=== PATIENT | male | born 2000 | race Caucasian/White ===

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

== ENCOUNTER 2021-02-24 21:36 | Emergency (ER) | payer MEDICAID ==
[~2021-02-24] VITALS: Ht 197 cm; Wt 100.0 kg
[~2021-02-24 21:36] MED LIST changes: -ARIP10TA17; +ARIP10TA55; +ESCI-2; +SERT-414 PO; -SERT100T8 PO; -SULF1TAB35 PO; +SULF1TAB38 PO; -TRAZ-222; +TRZ50T
[2021-02-24] MEDS ORDERED: LACTATED RINGERS 1,000 ML IV ONE (21:45)
--- NOTE | 2021-02-24 21:58 | ED Chest Pain ---
General Chief Complaint: Chest Pain Stated Complaint: CHEST PAIN Source: patient, EMS Exam Limitations: no limitations History of Present Illness Date Seen by Provider: Feb 24, 2021 Time Seen by Provider: 21:42 Initial Comments Patient to the ER by EMS from [facility] with chief complaint of some right-sided chest pain worse with deep inspiration or direct palpation. He has no personal history of heart disease, blood clots. About 11 days ago he was diagnosed with COVID-19. He says the symptoms were milder than a cold and 3 days ago he had a negative Covid swab. He did have [employer]vin [employer] Ervin vaccination. He has no history of lung disease but he did overdose on Tylenol in the past and was told he can never take Tylenol again because he took 20,000 mg and had some liver damage. He does occasionally smoke a cigarette or cannabis. Here barrera he did use methamphetamines 2 days ago. His chest pain started on Monday, 2 days ago. No known familial medical history as he was placed in the foster system when he was 6 years old. Patient is having no hemoptysis. He has not taken any ibuprofen because he does not have any available. No trauma. He describes the pain as mild and dull with stabbing sharp operating theatre technician knifelike pain whenever he takes a deep breath or moves occasionally. The patient took some Tums with no relief of symptoms. Allergies and Home Medications Allergies Coded Allergies: No Known Drug Allergies (Unverified , 06/27/16) Patient Home Medication List Home Medication List Reviewed: Yes Escitalopram Oxalate (Escitalopram Oxalate) 10 Mg Tablet, (Reported) Entered as Reported by: NIGEL ELLIOTT on 08/09/18 4704 Review of Systems Review of Systems Constitutional: No chills, No diaphoresis EENTM: No Blurred Vision, No Double Vision Respiratory: Denies Cough, Denies Shortness of Air Cardiovascular: See HPI, Chest Pain Gastrointestinal: Denies Abdominal Pain, Denies Constipated, Denies Diarrhea, Denies Nausea, Denies Poor Appetite Genitourinary: Denies Burning, Denies Discharge Musculoskeletal: No back pain, No joint pain All Other Systems Reviewed Negative Unless Noted: Yes Past Izjrwip-Piaaxp-Vodkfa Hx Patient Social History Tobacco Use?: Yes Tobacco type used: Cigarettes Smoking Status: Current Everyday Smoker Substance use?: Yes Substance type: Methamphetamine, Marijuana Immunizations Up To Date Tetanus Booster (TDap): Less than 5yrs PED Vaccines UTD: Yes Seasonal Allergies Seasonal Allergies: No Past Medical History Surgeries: No Respiratory: No Cardiac: No Neurological: No Reproductive Disorders: No Genitourinary: No Gastrointestinal: No Musculoskeletal: No Endocrine: No HEENT: No Cancer: No Psychosocial: Yes (mood disorder) Suicide Attempts, Depression Integumentary: No Blood Disorders: No Adverse Reaction/Blood Tranf: No Family Medical History No Pertinent Family Hx Physical Exam Vital Signs Capillary Refill : Height, Weight, BMI Height: 6'7.00" Weight: 165lbs. oz. 74.783138xu; 14.06 BMI Method:Stated General Appearance: Anxious, Mild Distress HEENT: PERRL/EOMI, TMs Normal, Normal ENT Inspection, Pharynx Normal, Moist Mucous Membranes Neck: Full Range of Motion, Normal Inspection Respiratory: Lungs Clear, Normal Breath Sounds, No Accessory Muscle Use, Other (Patient mildly tachypneic 25 to 30 breaths/min but shallow. Deep inspirations causes severe sharp pain in his right chest. It is also reproducible by direct palpation of his right chest. There is no deformity discoloration of the anterior chest wall. No crepitus palpable.) Cardiovascular: Regular Rate, Rhythm, Normal Peripheral Pulses Gastrointestinal: Normal Bowel Sounds, No Organomegaly, Non Tender, Soft Extremity: Normal Capillary Refill, Normal Inspection, Normal Range of Motion, No Calf Tenderness, No Pedal Edema Neurologic/Psychiatric: Alert, Oriented x3 Skin: Normal Color, Warm/Dry Progress/Results/Core Measures Results/Orders Lab Results Laboratory Tests Test 02/24/21 21:45 Range/Units White Blood Count 7.5 4.3-11.0 10^3/uL Red Blood Count 5.23 4.30-5.52 10^6/uL Hemoglobin 16.3 13.3-17.7 g/dL Hematocrit 46 40-54 % Mean Corpuscular Volume 87 80-99 fL Mean Corpuscular Hemoglobin 31 25-34 pg Mean Corpuscular Hemoglobin Concent 36 32-36 g/dL Red Cell Distribution Width 12.2 10.0-14.5 % Platelet Count 298 130-400 10^3/uL Mean Platelet Volume 9.7 9.0-12.2 fL Immature Granulocyte % (Auto) 0 % Neutrophils (%) (Auto) 57 42-75 % Lymphocytes (%) (Auto) 32 12-44 % Monocytes (%) (Auto) 9 0-12 % Eosinophils (%) (Auto) 1 0-10 % Basophils (%) (Auto) 1 0-10 % Neutrophils # (Auto) 4.3 1.8-7.8 10^3/uL Lymphocytes # (Auto) 2.4 1.0-4.0 10^3/uL Monocytes # (Auto) 0.7 0.0-1.0 10^3/uL Eosinophils # (Auto) 0.1 0.0-0.3 10^3/uL Basophils # (Auto) 0.1 0.0-0.1 10^3/uL Immature Granulocyte # (Auto) 0.0 0.0-0.1 10^3/uL D-Dimer <= 0.27 0.00-0.49 UG/ML Sodium Level 140 135-145 MMOL/L Potassium Level 3.1 L 3.6-5.0 MMOL/L Chloride Level 106 98-107 MMOL/L Carbon Dioxide Level 18 L 21-32 MMOL/L Anion Gap 16 H 5-14 MMOL/L Blood Urea Nitrogen 12 7-18 MG/DL Creatinine 1.08 0.60-1.30 MG/DL Estimat Glomerular Filtration Rate 87 BUN/Creatinine Ratio 11 Glucose Level 84 70-105 MG/DL Calcium Level 10.1 8.5-10.1 MG/DL Corrected Calcium 8.5-10.1 MG/DL Total Bilirubin 0.6 0.1-1.0 MG/DL Aspartate Amino Transf (AST/SGOT) 17 5-34 U/L Alanine Aminotransferase (ALT/SGPT) 10 0-55 U/L Alkaline Phosphatase 72 40-136 U/L Total Creatine Kinase 71 30-200 U/L Troponin I < 0.028 <0.028 NG/ML Total Protein 7.9 6.4-8.2 GM/DL Albumin 4.6 H 3.2-4.5 GM/DL My Orders Orders - RAPHAELHELENA J Chest 1 View, Ap/Pa Only (02/24/21 21:44) Cbc With Automated Diff (02/24/21 21:44) Comprehensive Metabolic Panel (02/24/21 21:44) Troponin I Tommy (02/24/21 21:44) Creatine Kinase (02/24/21 21:44) Ed Iv/Invasive Line Start (02/24/21 21:44) Lactated Ringers (Lr 1000 Ml Iv Solution (02/24/21 21:45) Continuous Ekg Monitoring (02/24/21 21:45) Ekg Tracing (02/24/21 21:45) Ketorolac Injection (Toradol Injection) (02/24/21 22:00) Fibrin Degradation Products (02/24/21 21:53) Medications Given in ED Current Medications Medications Dose Ordered Sig/Tacho Route Start Time Stop Time Status Last Admin Dose Admin Ketorolac Tromethamine 30 mg ONCE ONCE IVP 02/24/21 22:00 02/24/21 22:01 DC 02/24/21 22:05 30 MG Lactated Ringer's 1,000 ml @ 0 mls/hr Q0M ONCE IV 02/24/21 21:45 02/24/21 21:46 DC 02/24/21 22:05 0 MLS/HR Progress Progress Note : Time: 21:57 Progress Note No tachycardia or evidence of DVT however because of his recent Covid infection he would be reasonable to get a D-dimer for intermediate suspicion of pulmonary embolism. Costochondritis and pleurisy seems more likely. We will get a troponin and EKG to rule out myocarditis which is commonly associated with viral infections. Toradol for his pain. Initial ECG Impression Date: Feb 24, 2021 Initial ECG Impression Time: 21:38 Initial ECG Rate: 70 Initial ECG Rhythm: Normal Sinus Initial ECG Intervals: Normal Initial ECG Impression: Normal Comment Normal sinus rhythm without clinically relevant ST changes. Diagnostic Imaging Diagonstic Imaging: Xray Plain Films/CT/US/NM/MRI: chest Comments [facility], [facility]. [place], [place] NAME: GIRMA JORDAN [facility] REC#: [id number] PT STATUS: REG ER : 2000 PHYSICIAN: HELENA LIM MD ADMIT DATE: 02/24/21/ER Signed Date of Exam:02/24/21 CHEST 1 VIEW, AP/PA ONLY CLINICAL INDICATION: Patient with chest pain. EXAM: Portable chest x-ray upright view. COMPARISON: None. FINDINGS: Lungs/pleura: Lungs are clear. There is no pneumothorax. There is no pleural effusion. Mediastinum: Unremarkable. Pulmonary vasculature: Unremarkable. Heart: Unremarkable. Bones/extrathoracic soft tissue: Unremarkable. IMPRESSION: There is no radiographic evidence of acute cardiopulmonary process. Dictated by: Dictated on workstation # [id number] Dict: 02/24/212328 Trans: 02/24/212337 DANIELLE [id number] Interpreted by: VIV WEBB MD Electronically signed by: VIV WEBB MD 02/24/218 Reviewed: Reviewed by Me Departure Impression Primary Impression: Pleurisy Additional Impression: Acute costochondritis Disposition: HOME, SELF-CARE Condition: Stable Departure-Patient Inst. Decision time for Depature: 23:47 Referrals: [facility] (PCP/Family) Primary Care Physician Patient Instructions: Pleuritic Chest Pain, Costochondritis Add. Discharge Instructions: Your chest wall pain usually will resolve in 1 to 2 weeks. Prednisone 2 tablets daily for the next 5 days to help reduce inflammation and p ain. Naproxen 500 mg twice a day as necessary for pain in your chest wall. Humidifiers and vapor rubs such as Vicks or Mentholatum may be helpful for pain. All discharge instructions reviewed with patient and/or family. Voiced understanding. Scripts Naproxen (Naprosyn) 500 Mg Tablet 500 MG PO BID for 14 Days, #30 TAB 0 Refills Prov: HELENA LIM 02/24/21 Prednisone (Prednisone) 20 Mg Tab 40 MG PO DAILY for 5 Days, #10 TAB 0 Refills Prov: HELENA LIM 02/24/21 Work/School Note: Work Release Form Date Seen in the Emergency Department: Feb 24, 2021 Return to Work: Feb 25, 2021 Restrictions: Need Release from Doctor HELENA LIM Feb 24, 2021 21:58
[2021-02-24 21:59] LABS: BASOPHILS # (AUTO) 0.1 10^3/uL (0.0-0.1); BASOPHILS % (AUTO) 1 % (0-10); EOSINOPHILS # (AUTO) 0.1 10^3/uL (0.0-0.3); EOSINOPHILS % (AUTO) 1 % (0-10); HEMATOCRIT 46 % (40-54); HEMOGLOBIN 16.3 g/dL (13.3-17.7); LYMPHOCYTES # (AUTO) 2.4 10^3/uL (1.0-4.0); LYMPHOCYTES % (AUTO) 32 % (12-44); MEAN CORPUSCULAR HEMOGLOBIN 31 pg (25-34); MEAN CORPUSCULAR HGB CONC 36 g/dL (32-36); MEAN CORPUSCULAR VOLUME 87 fL (80-99); MEAN PLATELET VOLUME 9.7 fL (9.0-12.2); MONOCYTES # (AUTO) 0.7 10^3/uL (0.0-1.0); MONOCYTES % (AUTO) 9 % (0-12); NEUTROPHILS # (AUTO) 4.3 10^3/uL (1.8-7.8); NEUTROPHILS % (AUTO) 57 % (42-75); PLATELET COUNT 298 10^3/uL (130-400); WHITE BLOOD COUNT 7.5 10^3/uL (4.3-11.0)
[2021-02-24] MEDS ORDERED: KETOROLAC 30 MG/ML VIAL IVP ONE (22:00)
[2021-02-24 22:10] LABS: ALBUMIN 4.6 GM/DL (3.2-4.5); CHLORIDE 106 MMOL/L (98-107); POTASSIUM 3.1 MMOL/L (3.6-5.0); SODIUM 140 MMOL/L (135-145)
[2021-02-24 22:11] LABS: CALCIUM 10.1 MG/DL (8.5-10.1)
[2021-02-24 22:12] LABS: GLUCOSE 84 MG/DL (70-105); TOTAL PROTEIN 7.9 GM/DL (6.4-8.2)
[2021-02-24 22:13] LABS: CARBON DIOXIDE 18 MMOL/L (21-32)
[2021-02-24 22:14] LABS: BILIRUBIN,TOTAL 0.6 MG/DL (0.1-1.0)
[2021-02-24 22:15] LABS: ALKALINE PHOSPHATASE 72 U/L (40-136)
[2021-02-24 22:16] LABS: CREATININE SERUM 1.08 MG/DL (0.60-1.30); GFR ESTIMATED 87
[2021-02-24 22:17] LABS: BUN/CREATININE RATIO 11
[2021-02-24 22:19] LABS: ALANINE AMINOTRANSFERASE 10 U/L (0-55); CREATINE KINASE 71 U/L (30-200)
--- NOTE | 2021-02-24 23:32 | Diagnostic Imaging Report ---
CLINICAL INDICATION: Patient with chest pain. EXAM: Portable chest x-ray upright view. COMPARISON: None. FINDINGS: Lungs/pleura: Lungs are clear. There is no pneumothorax. There is no pleural effusion. Mediastinum: Unremarkable. Pulmonary vasculature: Unremarkable. Heart: Unremarkable. Bones/extrathoracic soft tissue: Unremarkable. IMPRESSION: There is no radiographic evidence of acute cardiopulmonary process. Dictated by: Dictated on workstation # [id number]
[2021-02-24] MEDS ORDERED: PRD20T PO (23:49)
[2021-02-24] MEDS ORDERED: NAPR-1071 PO (23:49)
[2021-02-25 00:05] VITALS: BP 127/77
== END 2021-02-25 00:05 | disposition home or self-care (01) ==
LOC: EDUNIT# 21:36 → ER 21:37
DX: R09.1 Pleurisy (principal); M94.0 Chondrocostal junction syndrome [Tietze]; F32.9 Major depressive disorder, single episode, unspecified; F17.210 Nicotine dependence, cigarettes, uncomplicated; Z79.899 Other long term (current) drug therapy
CPT/HCPCS: 36415; 71045; 80053; 82550; 84484; 85025; 85379; 93005